=== PATIENT | male | born 1950 | race Caucasian/White ===

== ENCOUNTER → 2016-10-14 | Outpatient (CLI) | payer OTHER ==
[~2016-10-14] MED LIST: ALLERGY RELIEF180 MG PO; AMARYL4 MG PO; CYMBALTA30 MG PO; DOXYCYCLINE100 MG PO; FENOFIBRATE160 MG PO; GLUCOPHAGE1000 MG PO; GLUCOPHAGE500 MG PO; HUMULIN 70/30 703 M1 SC; LISINOPRIL-HYDR1 TA1 PO; METOPROLOL SUCC50 M2 PO; NEURONTIN300 MG PO; PAROXETINE HCL20 MG PO; PAXIL30 M2 PO; PEPCID40 MG PO; PLAVIX75 M1 PO; TAMSULOSIN HCL0.4 MG PO; VITAMIN D50000 UNIT PO; ZOCOR40 MG PO; [UNRECOGNIZED DRUG - OTHER] TP
== END | disposition home or self-care (01) ==
LOC: LAB 09:53 → CP 10:00
DX: G62.9 Polyneuropathy, unspecified (principal); R41.3 Other amnesia

== ENCOUNTER → 2017-03-18 | Outpatient (CLI) | payer MEDICARE | END | disposition home or self-care (01) | LOC: US 12:30 | DX: R22.2 Localized swelling, mass and lump, trunk (principal); R22.0 Localized swelling, mass and lump, head ==

== ENCOUNTER → 2017-04-01 | Day surgery (SDC) | payer MEDICARE, MEDICAID ==
[2017-04-01 12:57] LABS: ACT PARTIAL THROMBO TIME 25.1 SECONDS (20.8-31.5)
== END ==
LOC: SDC 02:37 → RAD 12:00 → SDC 13:00
PROVIDERS: Nurse Practitioner Family
DX: L02.31 Cutaneous abscess of buttock (principal); I48.91 Unspecified atrial fibrillation; I26.99 Other pulmonary embolism without acute cor pulmonale; E11.65 Type 2 diabetes mellitus with hyperglycemia; Z79.4 Long term (current) use of insulin; F32.9 Major depressive disorder, single episode, unspecified; F41.9 Anxiety disorder, unspecified; E55.9 Vitamin D deficiency, unspecified; G47.33 Obstructive sleep apnea (adult) (pediatric); Z79.84 Long term (current) use of oral hypoglycemic drugs; Z79.899 Other long term (current) drug therapy

== ENCOUNTER → 2017-05-09 | Outpatient (CLI) | payer MEDICARE, MEDICAID ==
[2017-05-09 11:52] LABS: CREATININE 1.15 mg/dL (0.70-1.30)
== END | disposition home or self-care (01) ==
LOC: MRI 11:00 → LAB 11:18 → MRI 11:18
PROVIDERS: Radiology Diagnostic Radiology
DX: I63.9 Cerebral infarction, unspecified (principal); Z78.9 Other specified health status

== ENCOUNTER → 2017-05-12 | Outpatient (CLI) | payer MEDICARE, MEDICAID | END | disposition home or self-care (01) | LOC: CP 08:25 | DX: J44.9 Chronic obstructive pulmonary disease, unspecified (principal); G47.33 Obstructive sleep apnea (adult) (pediatric) ==

== ENCOUNTER → 2017-06-03 | Day surgery (SDC) | payer MEDICARE, MEDICAID ==
[~2017-06-03] VITALS: Ht 165.1 cm; Wt 98.4 kg
[~2017-06-03] MED LIST changes: +HYDR12.5C PO; -LISINOPRIL-HYDR1 TA1 PO
--- NOTE | ~2017-06-03 | PROC NOTE ---
[place], [place] PROCEDURE NOTE NAME: [facility] #: [id number] UNIT #: [id number] ROOM: DOCTOR: LOKESH ALAN MD BIRTHDATE: [birth year] DOS: 06/03/2017 PREOPERATIVE DIAGNOSIS: Left gluteal cyst. POSTOPERATIVE DIAGNOSIS: Left gluteal cyst. PROCEDURE: Excision of left gluteal cyst. SURGEON: Lokesh Alan MD HOTEL SERVICE SUPERVISOR: MARCELL. ANESTHESIA: MAC with local. INDICATIONS: This is a 66-year-old gentleman who presents with a left gluteal cyst that he wants excised. The procedure and its complications were explained to the patient in detail preoperatively. Complications that were discussed included but were not limited to bleeding, infection, hematoma/seroma/abscess formation and prolonged pain. He agreed to proceed. DESCRIPTION OF PROCEDURE: After identifying the patient, the patient was brought to the operating suite and placed in the right lateral position. After IV sedation was administered, a timeout was called and the incision was marked in an elliptical fashion, 1% plain lidocaine was injected for local anesthesia after the parts were painted and draped in the usual sterile fashion. A skin incision was made and deepened in layers. The lesion was excised in its entirety and sent for histopathological diagnosis. Thereafter, hemostasis was confirmed with the help of electrocautery and the edges of the skin after irrigation were approximated with the help of 3-0 nylon in an interrupted mattress fashion. Dressing was placed. The patient tolerated the procedure well and was taken to the recovery room in stable fashion. There were no complications. Dr. Lokesh Alan, the attending surgeon, was present throughout the operating case. Lokesh Alan MD CM:PROCNOTE:PROCEDURE NOTE [id number] LOKESH ALAN MD
[2017-06-03 08:30] VITALS: BP 116/77
[2017-06-03 09:33] VITALS: BP 122/75
[2017-06-03 09:48] VITALS: BP 133/58
[2017-06-03 10:00] VITALS: BP 122/75
== END | disposition home or self-care (01) ==
LOC: SDC 06-02 10:15
DX: L08.89 Other specified local infections of the skin and subcutaneous tissue (principal); I25.2 Old myocardial infarction; I25.10 Atherosclerotic heart disease of native coronary artery without angina pectoris; E11.9 Type 2 diabetes mellitus without complications; F32.9 Major depressive disorder, single episode, unspecified; Z79.899 Other long term (current) drug therapy; E66.01 Morbid (severe) obesity due to excess calories; Z68.43 Body mass index [BMI] 50.0-59.9, adult; G47.30 Sleep apnea, unspecified; Z88.0 Allergy status to penicillin; Z88.8 Allergy status to other drugs, medicaments and biological substances

== ENCOUNTER → 2018-04-03 | Outpatient (CLI) | payer MEDICARE, MEDICAID ==
[~2018-04-03] MED LIST changes: +ARICEPT5 M1 PO; +COZAAR25 M1 PO; +LORATADINE10 M3 PO; +METFORMIN HYD1000 MG PO; +METOPROLOL TART50 M1 PO; +PERCOCET 5-3251 EACH PO; +PROVENTIL HFA6.7 GM INH; +SEROQUEL50 MG PO; +TOUJEO SOL300 UNIT/1 SQ; +TRAMADOL HCL50 MG PO
== END | disposition home or self-care (01) ==
LOC: US 13:00
DX: I70.203 Unspecified atherosclerosis of native arteries of extremities, bilateral legs (principal)

== ENCOUNTER → 2018-05-15 | Day surgery (SDC) | payer MEDICARE, MEDICAID ==
[~2018-05-15] VITALS: Ht 165.1 cm; Wt 98.9 kg
[2018-05-15 10:03] VITALS: BP 174/77
[2018-05-15 11:07] VITALS: BP 127/75
[2018-05-15 11:25] VITALS: BP 125/84
[2018-05-15 11:40] VITALS: BP 143/92
== END | disposition home or self-care (01) ==
LOC: SDC 05-12 09:30
DX: L98.419 Non-pressure chronic ulcer of buttock with unspecified severity (principal); L02.31 Cutaneous abscess of buttock; E11.9 Type 2 diabetes mellitus without complications; I25.2 Old myocardial infarction; F32.9 Major depressive disorder, single episode, unspecified; G62.9 Polyneuropathy, unspecified; Z98.890 Other specified postprocedural states; Z87.442 Personal history of urinary calculi; Z88.0 Allergy status to penicillin; Z88.8 Allergy status to other drugs, medicaments and biological substances; Z79.899 Other long term (current) drug therapy

== ENCOUNTER → 2018-06-01 | Outpatient (CLI) | payer MEDICARE | END | disposition home or self-care (01) | LOC: WOUNDCARE 08:09 | DX: S31.829A Unspecified open wound of left buttock, initial encounter (principal); L72.0 Epidermal cyst; E11.9 Type 2 diabetes mellitus without complications; J45.909 Unspecified asthma, uncomplicated; I10 Essential (primary) hypertension; I51.9 Heart disease, unspecified; F17.210 Nicotine dependence, cigarettes, uncomplicated; X58.XXXA Exposure to other specified factors, initial encounter; Y93.89 Activity, other specified; Y92.89 Other specified places as the place of occurrence of the external cause; Y99.8 Other external cause status; Z79.4 Long term (current) use of insulin ==

== ENCOUNTER → 2018-06-13 | Outpatient (CLI) | payer MEDICARE | END | disposition home or self-care (01) | LOC: WOUNDCARE 00:13 | DX: S31.829D Unspecified open wound of left buttock, subsequent encounter (principal); L72.0 Epidermal cyst; E11.9 Type 2 diabetes mellitus without complications; I11.9 Hypertensive heart disease without heart failure; J45.909 Unspecified asthma, uncomplicated; F17.210 Nicotine dependence, cigarettes, uncomplicated; X58.XXXD Exposure to other specified factors, subsequent encounter ==

== ENCOUNTER → 2018-09-27 | Outpatient (CLI) | payer MEDICARE | END | disposition home or self-care (01) | LOC: RAD 12:30 | DX: M19.012 Primary osteoarthritis, left shoulder (principal); M87.812 Other osteonecrosis, left shoulder ==

== ENCOUNTER → 2018-10-10 | Outpatient (CLI) | payer MEDICARE ==
--- NOTE | ~2018-10-10 | PF ---
[place], [place] PULMONARY FUNCTION TEST [facility] [id number] UNIT #: [id number] ROOM: DOCTOR: ALESSIA ODONNELL MD,LEONCIO BIRTHDATE: [birth year] DOS: 10/11/2018 ORDERED BY: Gilbert Crouch, nurse practitioner. HISTORY: The patient is a 67-year-old male, height of 66 inches, weight of 196 pounds. Study was done for assessment of symptoms of frequent wheezing, nonproductive cough and shortness of breath with exertion. Tobacco use reported half a pack of cigarettes for 35 years. SPIROMETRY: FVC of 3.47 liters, 91% predicted value. The FEV1 2.7 liters as 95% predicted value with a ratio of FEV1/FVC is normal. Flow volume loop was normal. LUNG VOLUME: Thoracic gas volume recorded as 88%, residual volume 121%, total lung capacity 97%. RV/TLC ratio 124%. The patient's airway resistance, passive conductance noted normal partial improvement post-bronchodilators. The patient's lung diffusion noted 97%. FINAL IMPRESSION: Possibility of very mild reversible obstructive lung disease cannot be excluded. Clinical correlation would be advised. LEONCIO AGGARWAL MD CM:PFREPORT:PULMONARY FUNCTION TEST [id number] LEONCIO ODONNELL MD
== END | disposition home or self-care (01) ==
LOC: CP 07:09
DX: R05 Cough (principal); R06.2 Wheezing; F17.210 Nicotine dependence, cigarettes, uncomplicated

== ENCOUNTER → 2019-05-09 | Outpatient (CLI) | payer MEDICARE ==
[2019-05-09 10:58] LABS: HEMATOCRIT 52.9 % (42.0-52.0); HEMOGLOBIN 17.1 g/dl (14.0-18.0); MEAN CELL VOLUME 87.1 fl (80.0-94.0); MEAN CORPUSCULAR HGB 28.2 pg (27.0-31.0); MEAN CORPUSCULAR HGB CONC 32.3 g/dl (33.0-37.0); MEAN PLATELET VOLUME 11.3 fl (9.6-12.3); RED BLOOD COUNT 6.07 10*6/uL (4.50-5.90); RED CELL DISTRI WIDTH 12.8 % (0-14.5); WHITE BLOOD COUNT 7.7 10*3/uL (4.8-10.8)
[2019-05-09 11:33] LABS: ALBUMIN 3.7 gm/dl (3.1-4.5); ALKALINE PHOSPHATASE 124 U/L (45-117); BUN 21 mg/dl (7-24); CHLORIDE 102 mmol/L (98-107); CHOLESTEROL 160 mg/dL (<200); HDL CHOLESTEROL 43 mg/dl (40-60); POTASSIUM 3.9 mmol/L (3.5-5.1); SGOT/AST 18 IU/L (3-35); SGPT/ALT 36 U/L (12-78); SODIUM 137 mmol/L (136-145); TRIGLYCERIDES 651 mg/dl (<150)
[2019-05-09 11:47] LABS: VITAMIN D, 25-HYDROXY 42.8 ng/mL (30-100)
[2019-05-10 06:08] LABS: HEPATITIS B SURFACE AG Negative (Negative); HEPATITIS C VIRUS ANTIBODY <0.1 s/co (0.0-0.9)
[2019-05-10 08:12] LABS: H PYLORI IGG AB 162289 0.33 (0.00-0.79)
== END | disposition home or self-care (01) ==
LOC: LAB 10:06
PROVIDERS: Family Medicine
DX: Z12.5 Encounter for screening for malignant neoplasm of prostate (principal); E11.9 Type 2 diabetes mellitus without complications; E78.00 Pure hypercholesterolemia, unspecified; R53.83 Other fatigue; E55.9 Vitamin D deficiency, unspecified; M25.50 Pain in unspecified joint; Z11.3 Encounter for screening for infections with a predominantly sexual mode of transmission; Z72.89 Other problems related to lifestyle

== ENCOUNTER → 2019-09-26 | Outpatient (CLI) | payer MEDICARE ==
[2019-09-26 10:40] LABS: MEAN CELL VOLUME 87.3 fl (80.0-94.0); MEAN CORPUSCULAR HGB 28.8 pg (27.0-31.0); MEAN PLATELET VOLUME 10.7 fl (9.6-12.3); RED BLOOD COUNT 5.04 10*6/uL (4.50-5.90); WHITE BLOOD COUNT 7.1 10*3/uL (4.8-10.8)
[2019-09-26 10:57] LABS: ALBUMIN 3.5 gm/dl (3.1-4.5); ALKALINE PHOSPHATASE 115 U/L (45-117); BUN 35 mg/dl (7-24); CHLORIDE 104 mmol/L (98-107); CHOLESTEROL 239 mg/dL (<200); CREATININE 1.03 mg/dL (0.70-1.30); HDL CHOLESTEROL 39 mg/dl (40-60); POTASSIUM 5.2 mmol/L (3.5-5.1); SGOT/AST 17 IU/L (3-35); SGPT/ALT 25 U/L (12-78); SODIUM 137 mmol/L (136-145); TOTAL PROTEIN 7.7 gm/dL (6.4-8.2); TRIGLYCERIDES 647 mg/dl (<150)
== END | disposition home or self-care (01) ==
LOC: LAB 10:19
PROVIDERS: Family Medicine
DX: I10 Essential (primary) hypertension (principal); E11.9 Type 2 diabetes mellitus without complications; E55.9 Vitamin D deficiency, unspecified; M19.90 Unspecified osteoarthritis, unspecified site

== ENCOUNTER → 2020-01-02 | Outpatient (CLI) | payer MEDICARE ==
[2020-01-02 10:31] LABS: HEMATOCRIT 45.8 % (42.0-52.0); MEAN CELL VOLUME 87.6 fl (80.0-94.0); MEAN CORPUSCULAR HGB 28.5 pg (27.0-31.0); MEAN CORPUSCULAR HGB CONC 32.5 g/dl (33.0-37.0); MEAN PLATELET VOLUME 11.3 fl (9.6-12.3); RED BLOOD COUNT 5.23 10*6/uL (4.50-5.90); RED CELL DISTRI WIDTH 12.9 % (0-14.5)
[2020-01-02 10:57] LABS: ALBUMIN 3.5 gm/dl (3.1-4.5); BUN 27 mg/dl (7-24); CHLORIDE 101 mmol/L (98-107); POTASSIUM 4.1 mmol/L (3.5-5.1); SODIUM 138 mmol/L (136-145)
[2020-01-02 11:01] LABS: ALKALINE PHOSPHATASE 111 U/L (45-117); CHOLESTEROL 276 mg/dL (<200); CREATININE 0.92 mg/dL (0.70-1.30); HDL CHOLESTEROL 42 mg/dl (40-60); SGOT/AST 18 IU/L (3-35); SGPT/ALT 27 U/L (12-78); TOTAL PROTEIN 8.1 gm/dL (6.4-8.2); TRIGLYCERIDES 450 mg/dl (<150)
== END | disposition home or self-care (01) ==
LOC: LAB 09:39
PROVIDERS: ATTEND Nurse Practitioner Family
DX: E11.9 Type 2 diabetes mellitus without complications (principal); E78.00 Pure hypercholesterolemia, unspecified; E55.9 Vitamin D deficiency, unspecified

== ENCOUNTER → 2020-04-08 | Outpatient (CLI) | payer MEDICARE ==
[~2020-04-08] MED LIST changes: +CRESTOR20 M1 PO; +DOK COLACE100 MG PO; +DONEPEZIL HYDRO10 M1 PO; +FLOMAX0.4 MG PO; +HUMULIN 70100 UNIT/2 SQ; +HYDROCODONE-AC1 EACH PO; +KENALOG 0.1% OI15 GM T; +LOPID600 M1 PO; +MIRALAX119 GM PO; +NICODERM CQ1 EAC1 TD; +Percocet 325 MG1 TAB PO; +ROXICODONE5 MG PO; +SUNMARK OMEPRAZ20 M1 PO; +VITAMIN D3250 MC2 PO
== END | disposition home or self-care (01) ==
LOC: CARD 12:00
PROVIDERS: ATTEND Internal Medicine Cardiovascular Disease
DX: R07.89 Other chest pain (principal); I10 Essential (primary) hypertension; R42 Dizziness and giddiness; R06.2 Wheezing

== ENCOUNTER 2020-05-01 09:07 | Inpatient (IN) | payer MEDICARE ==
[~2020-05-01] VITALS: Ht 165.1 cm; Wt 92.4 kg
[~2020-05-01 09:07] MED LIST changes: -CRESTOR20 M1 PO; -DOK COLACE100 MG PO; -DONEPEZIL HYDRO10 M1 PO; -FLOMAX0.4 MG PO; -HUMULIN 70100 UNIT/2 SQ; -HYDROCODONE-AC1 EACH PO; -KENALOG 0.1% OI15 GM T; -LOPID600 M1 PO; -MIRALAX119 GM PO; -NICODERM CQ1 EAC1 TD; -Percocet 325 MG1 TAB PO; -ROXICODONE5 MG PO; -SUNMARK OMEPRAZ20 M1 PO; -VITAMIN D3250 MC2 PO
[2020-05-01 09:18] VITALS: BP 134/80
[2020-05-01 09:38] LABS: BASO % 0.4 % (0.0-1.0); EOS # 0.2 10*3/uL (0.0-0.4); EOS % 2.5 % (1.0-4.0); HEMATOCRIT 41.8 % (42.0-52.0); LYMPH # 0.9 10*3/uL (1.3-4.4); LYMPH % 12.7 % (27.0-41.0); MEAN CELL VOLUME 89.1 fl (80.0-94.0); MEAN CORPUSCULAR HGB 27.9 pg (27.0-31.0); MEAN CORPUSCULAR HGB CONC 31.3 g/dl (33.0-37.0); MEAN PLATELET VOLUME 10.4 fl (9.6-12.3); MONO # 0.4 10*3/uL (0.1-1.0); MONO % 6.1 % (3.0-9.0); NEUT # 5.7 10*3/uL (2.3-7.9); NEUT % 77.6 % (47.0-73.0); PLATELET COUNT AUTOMATED 204 10*3/uL (130-400); RED BLOOD COUNT 4.69 10*6/uL (4.50-5.90); RED CELL DISTRI WIDTH 12.9 % (0-14.5); WHITE BLOOD COUNT 7.3 10*3/uL (4.8-10.8)
[2020-05-01 09:56] LABS: ALBUMIN 2.9 gm/dl (3.1-4.5); BUN 35 mg/dl (7-24); CHLORIDE 104 mmol/L (98-107); CREATININE 1.08 mg/dL (0.70-1.30); POTASSIUM 5.1 mmol/L (3.5-5.1); SGOT/AST 19 IU/L (3-35); SGPT/ALT 27 U/L (12-78); SODIUM 138 mmol/L (136-145); TOTAL PROTEIN 7.7 gm/dL (6.4-8.2)
[2020-05-01 09:58] LABS: ALKALINE PHOSPHATASE 106 U/L (45-117)
[2020-05-01 09:59] LABS: TROPONIN I < 0.015 ng/ml (<0.045)
[2020-05-01 10:10] VITALS: BP 127/64
[2020-05-01 11:45] VITALS: BP 124/64
[2020-05-01 12:00] VITALS: BP 135/77
[2020-05-01] MEDS ORDERED: DONEPEZIL HYDRO10 M1 PO (15:22)
[2020-05-01] MEDS ORDERED: CYMBALTA30 MG PO (15:23)
[2020-05-01] MEDS ORDERED: LOPID600 M1 PO (15:24)
[2020-05-01] MEDS ORDERED: AMARYL4 MG PO (15:25)
[2020-05-01] MEDS ORDERED: GLUCOPHAGE1000 MG PO (15:26)
[2020-05-01] MEDS ORDERED: FLOMAX0.4 MG PO (15:33)
[2020-05-01] MEDS ORDERED: CRESTOR20 M1 PO (15:33)
[2020-05-01] MEDS ORDERED: VITAMIN D3250 MC2 PO (15:35)
[2020-05-01 16:00] VITALS: BP 145/65
[2020-05-01] MEDS ORDERED: Percocet 325 MG1 TAB PO (16:55)
[2020-05-01 20:00] VITALS: BP 148/82
[2020-05-02] VITALS (11 sets, daily range): BP systolic 109–147; BP diastolic 62–97
[2020-05-03] VITALS: BP 152/90
[2020-05-03 06:44] VITALS: BP 134/90
[2020-05-03 08:00] VITALS: BP 142/88
[2020-05-03 08:46] VITALS: BP 160/84
[2020-05-03 12:00] VITALS: BP 135/77
[2020-05-03] MEDS ORDERED: SUNMARK OMEPRAZ20 M1 PO (16:19)
[2020-05-03 20:00] VITALS: BP 165/89
[2020-05-04] VITALS: BP 158/91
[2020-05-04 06:19] LABS: BASO % 0.4 % (0.0-1.0); EOS # 0.2 10*3/uL (0.0-0.4); EOS % 2.2 % (1.0-4.0); LYMPH # 1.9 10*3/uL (1.3-4.4); LYMPH % 22.1 % (27.0-41.0); MEAN CELL VOLUME 87.7 fl (80.0-94.0); MEAN CORPUSCULAR HGB 27.8 pg (27.0-31.0); MEAN CORPUSCULAR HGB CONC 31.7 g/dl (33.0-37.0); MEAN PLATELET VOLUME 10.1 fl (9.6-12.3); MONO # 0.7 10*3/uL (0.1-1.0); MONO % 8.5 % (3.0-9.0); NEUT # 5.6 10*3/uL (2.3-7.9); PLATELET COUNT AUTOMATED 260 10*3/uL (130-400); RED BLOOD COUNT 4.79 10*6/uL (4.50-5.90); RED CELL DISTRI WIDTH 12.6 % (0-14.5); WHITE BLOOD COUNT 8.5 10*3/uL (4.8-10.8)
[2020-05-04 06:27] LABS: CREATININE 0.98 mg/dL (0.70-1.30)
[2020-05-04 08:00] VITALS: BP 144/77
[2020-05-04 12:00] VITALS: BP 152/76
[2020-05-04 16:00] VITALS: BP 150/86
[2020-05-04 20:00] VITALS: BP 113/71
[2020-05-04 20:45] VITALS: BP 140/90
[2020-05-05 08:50] VITALS: BP 150/82
[2020-05-05 12:00] VITALS: BP 119/72
[2020-05-05 16:00] VITALS: BP 133/72
[2020-05-05 20:00] VITALS: BP 140/88
[2020-05-05 20:45] VITALS: BP 140/71
[2020-05-06] VITALS: BP 150/85
[2020-05-06 08:00] VITALS: BP 130/86
[2020-05-06 08:15] VITALS: BP 128/76
[2020-05-06 12:00] VITALS: BP 124/62
[2020-05-06 16:00] VITALS: BP 129/90
[2020-05-06 20:00] VITALS: BP 142/77
[2020-05-07] VITALS: BP 133/72
[2020-05-07 06:20] LABS: BASO % 0.4 % (0.0-1.0); EOS # 0.3 10*3/uL (0.0-0.4); EOS % 3.3 % (1.0-4.0); HEMATOCRIT 38.4 % (42.0-52.0); LYMPH # 1.8 10*3/uL (1.3-4.4); LYMPH % 23.4 % (27.0-41.0); MEAN CELL VOLUME 86.1 fl (80.0-94.0); MEAN CORPUSCULAR HGB CONC 32.6 g/dl (33.0-37.0); MONO # 0.7 10*3/uL (0.1-1.0); MONO % 9.7 % (3.0-9.0); NEUT # 4.7 10*3/uL (2.3-7.9); PLATELET COUNT AUTOMATED 293 10*3/uL (130-400); RED BLOOD COUNT 4.46 10*6/uL (4.50-5.90); RED CELL DISTRI WIDTH 12.6 % (0-14.5); WHITE BLOOD COUNT 7.6 10*3/uL (4.8-10.8)
[2020-05-07 06:57] LABS: CREATININE 1.03 mg/dL (0.70-1.30)
[2020-05-07 08:00] VITALS: BP 121/85
[2020-05-07] MEDS ORDERED: DOK COLACE100 MG PO (09:31)
[2020-05-07] MEDS ORDERED: Percocet 325 MG1 TAB PO (09:42)
[2020-05-19] MEDS ORDERED: HUMULIN 70100 UNIT/2 SQ (08:43)
[2020-05-19] MEDS ORDERED: MIRALAX119 GM PO (08:44)
[2020-05-19] MEDS ORDERED: NICODERM CQ1 EAC1 TD (08:45)
[2020-05-19] MEDS ORDERED: KENALOG 0.1% OI15 GM T (08:46)
[2020-06-05] MEDS ORDERED: ROXICODONE5 MG PO (12:50)
== END 2020-05-07 12:32 | DRG 493 ==
LOC: ED 09:07 → EDHOLD 10:51 → 5E 10:51
PROVIDERS: Emergency Medicine; ADMIT Internal Medicine; ATTEND Internal Medicine
PROC: 0QSJ04Z Reposition Right Fibula with Internal Fixation Device, Open Approach (ICD-10-PCS; principal; 2020-05-02)
PROC: 5A1935Z Respiratory Ventilation, Less than 24 Consecutive Hours (ICD-10-PCS; 2020-05-02)
PROC: 5A1935Z Respiratory Ventilation, Less than 24 Consecutive Hours (ICD-10-PCS; 2020-05-04)
DX: S82.841A Displaced bimalleolar fracture of right lower leg, initial encounter for closed fracture (principal); J44.1 Chronic obstructive pulmonary disease with (acute) exacerbation; F33.1 Major depressive disorder, recurrent, moderate; E44.1 Mild protein-calorie malnutrition; S93.421A Sprain of deltoid ligament of right ankle, initial encounter; R91.1 Solitary pulmonary nodule; G47.33 Obstructive sleep apnea (adult) (pediatric); E78.2 Mixed hyperlipidemia; I25.10 Atherosclerotic heart disease of native coronary artery without angina pectoris; I10 Essential (primary) hypertension; E66.9 Obesity, unspecified; E55.9 Vitamin D deficiency, unspecified; G30.1 Alzheimer's disease with late onset; F02.80 Dementia in other diseases classified elsewhere, unspecified severity, without behavioral disturbance, psychotic disturbance, mood disturbance, and anxiety; L40.9 Psoriasis, unspecified; R55 Syncope and collapse; R79.89 Other specified abnormal findings of blood chemistry; N40.1 Benign prostatic hyperplasia with lower urinary tract symptoms; K21.9 Gastro-esophageal reflux disease without esophagitis; R33.8 Other retention of urine; M48.00 Spinal stenosis, site unspecified; M19.90 Unspecified osteoarthritis, unspecified site; F17.210 Nicotine dependence, cigarettes, uncomplicated; E11.42 Type 2 diabetes mellitus with diabetic polyneuropathy; Z88.0 Allergy status to penicillin; Z88.8 Allergy status to other drugs, medicaments and biological substances; Z95.5 Presence of coronary angioplasty implant and graft; Z82.49 Family history of ischemic heart disease and other diseases of the circulatory system; Z80.8 Family history of malignant neoplasm of other organs or systems; Z86.73 Personal history of transient ischemic attack (TIA), and cerebral infarction without residual deficits; Z87.442 Personal history of urinary calculi; I25.2 Old myocardial infarction; Z79.899 Other long term (current) drug therapy; W18.39XA Other fall on same level, initial encounter; Y93.89 Activity, other specified; Y92.89 Other specified places as the place of occurrence of the external cause; Y99.8 Other external cause status; Z20.822 Contact with and (suspected) exposure to COVID-19; Z68.34 Body mass index [BMI] 34.0-34.9, adult

== ENCOUNTER → 2020-05-16 | Outpatient (CLI) | payer MEDICARE ==
[~2020-05-16] MED LIST changes: +CRESTOR20 M1 PO; +DOK COLACE100 MG PO; +DONEPEZIL HYDRO10 M1 PO; +FLOMAX0.4 MG PO; +HUMULIN 70100 UNIT/2 SQ; +HYDROCODONE-AC1 EACH PO; +KENALOG 0.1% OI15 GM T; +LOPID600 M1 PO; +MIRALAX119 GM PO; +NICODERM CQ1 EAC1 TD; +Percocet 325 MG1 TAB PO; +ROXICODONE5 MG PO; +SUNMARK OMEPRAZ20 M1 PO; +VITAMIN D3250 MC2 PO
== END | disposition home or self-care (01) ==
LOC: ORTHO 01:06
PROVIDERS: ATTEND Orthopaedic Surgery
DX: S82.841D Displaced bimalleolar fracture of right lower leg, subsequent encounter for closed fracture with routine healing (principal); X58.XXXD Exposure to other specified factors, subsequent encounter

== ENCOUNTER → 2020-05-20 | Day surgery (SDC) | payer MEDICARE ==
[~2020-05-20] VITALS: Ht 165.1 cm; Wt 95.3 kg
[2020-05-20 07:28] VITALS: BP 152/79
[2020-05-20 10:10] VITALS: BP 139/79
[2020-05-20 10:23] VITALS: BP 126/56
[2020-05-20 10:38] VITALS: BP 129/72
[2020-05-20 10:52] VITALS: BP 120/75
[2020-05-20 11:10] VITALS: BP 138/85
== END ==
LOC: SDC 05-19 14:00
PROVIDERS: ATTEND Orthopaedic Surgery
DX: S82.841A Displaced bimalleolar fracture of right lower leg, initial encounter for closed fracture (principal); E11.40 Type 2 diabetes mellitus with diabetic neuropathy, unspecified; I25.2 Old myocardial infarction; F32.9 Major depressive disorder, single episode, unspecified; I25.10 Atherosclerotic heart disease of native coronary artery without angina pectoris; I10 Essential (primary) hypertension; Z86.73 Personal history of transient ischemic attack (TIA), and cerebral infarction without residual deficits; Z95.5 Presence of coronary angioplasty implant and graft; Z98.890 Other specified postprocedural states; Z88.0 Allergy status to penicillin; Z79.899 Other long term (current) drug therapy; X58.XXXA Exposure to other specified factors, initial encounter; Y93.89 Activity, other specified; Y92.89 Other specified places as the place of occurrence of the external cause; Y99.8 Other external cause status; Z20.828 Contact with and (suspected) exposure to other viral communicable diseases

== ENCOUNTER → 2020-06-03 | Outpatient (CLI) | payer MEDICARE | END | disposition home or self-care (01) | LOC: ORTHO 12:38 | PROVIDERS: ATTEND Orthopaedic Surgery | DX: M21.071 Valgus deformity, not elsewhere classified, right ankle (principal); S82.841D Displaced bimalleolar fracture of right lower leg, subsequent encounter for closed fracture with routine healing; X58.XXXD Exposure to other specified factors, subsequent encounter ==

== ENCOUNTER → 2020-06-04 | Outpatient (CLI) | payer MEDICARE ==
[2020-06-04 12:55] LABS: BUN 25 mg/dl (7-24); CHLORIDE 102 mmol/L (98-107); CREATININE 1.38 mg/dL (0.70-1.30); POTASSIUM 4.2 mmol/L (3.5-5.1); SODIUM 139 mmol/L (136-145)
== END | disposition home or self-care (01) ==
LOC: LAB 11:49
PROVIDERS: ATTEND Orthopaedic Surgery
DX: S02.841 Fracture of lateral orbital wall, right side (principal); I45.10 Unspecified right bundle-branch block; I25.2 Old myocardial infarction; X58.XXXD Exposure to other specified factors, subsequent encounter

== ENCOUNTER → 2020-06-05 | Day surgery (SDC) | payer MEDICARE ==
[~2020-06-05] VITALS: Ht 165.1 cm; Wt 95.3 kg
[2020-06-05 08:10] VITALS: BP 145/84
[2020-06-05 11:38] VITALS: BP 178/86
[2020-06-05 11:53] VITALS: BP 179/93
[2020-06-05 12:08] VITALS: BP 168/90
[2020-06-05 12:23] VITALS: BP 170/90
[2020-06-05 12:30] VITALS: BP 134/78
== END ==
LOC: SDC 06-04 09:30
PROVIDERS: ATTEND Orthopaedic Surgery
DX: S82.841A Displaced bimalleolar fracture of right lower leg, initial encounter for closed fracture (principal); F03.90 Unspecified dementia, unspecified severity, without behavioral disturbance, psychotic disturbance, mood disturbance, and anxiety; E11.49 Type 2 diabetes mellitus with other diabetic neurological complication; F32.9 Major depressive disorder, single episode, unspecified; I10 Essential (primary) hypertension; I25.10 Atherosclerotic heart disease of native coronary artery without angina pectoris; I25.2 Old myocardial infarction; E78.5 Hyperlipidemia, unspecified; F02.80 Dementia in other diseases classified elsewhere, unspecified severity, without behavioral disturbance, psychotic disturbance, mood disturbance, and anxiety; Z88.0 Allergy status to penicillin; X58.XXXA Exposure to other specified factors, initial encounter; Y93.89 Activity, other specified; Y92.89 Other specified places as the place of occurrence of the external cause; Y99.8 Other external cause status

== ENCOUNTER 2020-06-11 19:59 | Inpatient (IN) | payer MEDICARE ==
[~2020-06-11] VITALS: Ht 170.2 cm; Wt 94.3 kg
[~2020-06-11 19:59] MED LIST changes: -HYDROCODONE-AC1 EACH PO
[2020-06-11 20:14] VITALS: BP 154/82
[2020-06-11 21:08] LABS: BASO % 0.3 % (0.0-1.0); EOS # 0.2 10*3/uL (0.0-0.4); EOS % 3.4 % (1.0-4.0); HEMATOCRIT 37.5 % (42.0-52.0); LYMPH # 1.6 10*3/uL (1.3-4.4); LYMPH % 26.7 % (27.0-41.0); MEAN CELL VOLUME 86.6 fl (80.0-94.0); MEAN CORPUSCULAR HGB 27.7 pg (27.0-31.0); MEAN PLATELET VOLUME 10.5 fl (9.6-12.3); MONO # 0.5 10*3/uL (0.1-1.0); MONO % 8.7 % (3.0-9.0); NEUT # 3.6 10*3/uL (2.3-7.9); NEUT % 59.6 % (47.0-73.0); PLATELET COUNT AUTOMATED 270 10*3/uL (130-400); RED BLOOD COUNT 4.33 10*6/uL (4.50-5.90); RED CELL DISTRI WIDTH 12.8 % (0-14.5); WHITE BLOOD COUNT 6.1 10*3/uL (4.8-10.8)
[2020-06-11 21:18] LABS: INTERNATIONAL NORM RATIO 0.9 (2.0-3.5)
[2020-06-11 21:26] LABS: ALBUMIN 2.9 gm/dl (3.1-4.5); ALKALINE PHOSPHATASE 164 U/L (45-117); BUN 27 mg/dl (7-24); CHLORIDE 103 mmol/L (98-107); CREATININE 1.12 mg/dL (0.70-1.30); SGOT/AST 13 IU/L (3-35); SGPT/ALT 16 U/L (12-78); SODIUM 140 mmol/L (136-145); TOTAL PROTEIN 7.5 gm/dL (6.4-8.2)
[2020-06-11 22:40] VITALS: BP 140/82
[2020-06-12 08:00] VITALS: BP 152/52
[2020-06-12 12:00] VITALS: BP 156/89
[2020-06-12 14:00] VITALS: BP 150/64
[2020-06-12 20:00] VITALS: BP 112/77
[2020-06-13] VITALS (7 sets, daily range): BP systolic 110–167; BP diastolic 67–119
[2020-06-14] VITALS: BP 147/78
[2020-06-14 08:00] VITALS: BP 165/83
[2020-06-14 12:00] VITALS: BP 166/56
[2020-06-14 16:00] VITALS: BP 166/78
[2020-06-14 20:00] VITALS: BP 144/88
[2020-06-15] VITALS: BP 149/93
[2020-06-15 06:35] LABS: BASO % 0.4 % (0.0-1.0); EOS # 0.2 10*3/uL (0.0-0.4); EOS % 1.8 % (1.0-4.0); HEMATOCRIT 38.9 % (42.0-52.0); LYMPH # 2.2 10*3/uL (1.3-4.4); LYMPH % 23.9 % (27.0-41.0); MEAN CELL VOLUME 86.4 fl (80.0-94.0); MEAN CORPUSCULAR HGB 27.3 pg (27.0-31.0); MEAN CORPUSCULAR HGB CONC 31.6 g/dl (33.0-37.0); MEAN PLATELET VOLUME 10.6 fl (9.6-12.3); MONO # 0.9 10*3/uL (0.1-1.0); NEUT # 5.8 10*3/uL (2.3-7.9); PLATELET COUNT AUTOMATED 247 10*3/uL (130-400); RED CELL DISTRI WIDTH 13.1 % (0-14.5); WHITE BLOOD COUNT 9.2 10*3/uL (4.8-10.8)
[2020-06-15 06:39] LABS: BUN 28 mg/dl (7-24); CHLORIDE 101 mmol/L (98-107); CREATININE 0.93 mg/dL (0.70-1.30); SODIUM 135 mmol/L (136-145)
[2020-06-15 08:00] VITALS: BP 140/82
[2020-06-15 12:00] VITALS: BP 145/93
[2020-06-15 16:00] VITALS: BP 146/90
[2020-06-15 20:00] VITALS: BP 138/90; BP 171/94
[2020-06-16] VITALS: BP 157/79
[2020-06-16 08:00] VITALS: BP 146/86
[2020-06-16 12:00] VITALS: BP 156/80
[2020-06-16 16:00] VITALS: BP 128/82
[2020-06-16 20:31] VITALS: BP 158/80
[2020-06-17] VITALS: BP 154/85
[2020-06-17 08:00] VITALS: BP 132/86
[2020-06-17 12:00] VITALS: BP 130/88
[2020-06-17 16:00] VITALS: BP 153/82
[2020-06-17 20:00] VITALS: BP 132/78
[2020-06-18] VITALS (11 sets, daily range): BP systolic 128–170; BP diastolic 65–110
[2020-06-18 23:07] LABS: CREATININE 1.72 mg/dL (0.70-1.30); POTASSIUM 4.8 mmol/L (3.5-5.1)
[2020-06-19 04:46] LABS: BILIRUBIN Negative (Negative); BLOOD 1+ (Negative); CLARITY Clear (Clear); COLOR Yellow (Yellow); GLUCOSE 3+ (Negative); KETONE Negative (Negative); LEUKO ESTERASE Negative (Negative); NITRITE Negative (Negative); SPECIFIC GRAVITY 1.025 (1.001-1.030); UROBILINOGEN 0.2 E.U./dl (0.0-1.0)
[2020-06-19 04:59] LABS: BACTERIA TRACE
[2020-06-19 05:02] LABS: MUCOUS TRACE
[2020-06-19 08:00] VITALS: BP 157/80
[2020-06-19 11:07] LABS: ACID FAST SPEC PROCESSING Tissue Grinding (.)
[2020-06-19 12:00] VITALS: BP 153/87
[2020-06-19 15:54] VITALS: BP 126/76
[2020-06-19 20:00] VITALS: BP 129/84
[2020-06-20] VITALS: BP 136/86
[2020-06-20 08:00] VITALS: BP 137/74
[2020-06-20 12:00] VITALS: BP 148/81
[2020-06-20] MEDS ORDERED: HYDROCODONE-AC1 EACH PO (13:45)
[2020-06-20 16:00] VITALS: BP 145/73
== END 2020-06-20 17:47 | DRG 493 ==
LOC: ED 19:59 → EDHOLD 21:19 → 5E 21:19
PROVIDERS: Emergency Medicine; Internal Medicine; Podiatrist; ADMIT Internal Medicine; ATTEND Internal Medicine
PROC: 0QSG05Z Reposition Right Tibia with External Fixation Device, Open Approach (ICD-10-PCS; 2020-06-13)
PROC: 0QSGXZZ Reposition Right Tibia, External Approach (ICD-10-PCS; 2020-06-13)
PROC: 0QPJ04Z Removal of Internal Fixation Device from Right Fibula, Open Approach (ICD-10-PCS; 2020-06-13)
PROC: 0QPG04Z Removal of Internal Fixation Device from Right Tibia, Open Approach (ICD-10-PCS; 2020-06-13)
PROC: 0QPG05Z Removal of External Fixation Device from Right Tibia, Open Approach (ICD-10-PCS; principal; 2020-06-18)
PROC: 0QSG04Z Reposition Right Tibia with Internal Fixation Device, Open Approach (ICD-10-PCS; 2020-06-18)
PROC: 0QSJ04Z Reposition Right Fibula with Internal Fixation Device, Open Approach (ICD-10-PCS; 2020-06-18)
PROC: 0SSF04Z Reposition Right Ankle Joint with Internal Fixation Device, Open Approach (ICD-10-PCS; 2020-06-18)
PROC: 0SGF0KZ Fusion of Right Ankle Joint with Nonautologous Tissue Substitute, Open Approach (ICD-10-PCS; 2020-06-18)
PROC: 0MQQ0ZZ Repair Right Ankle Bursa and Ligament, Open Approach (ICD-10-PCS; 2020-06-18)
DX: S82.851A Displaced trimalleolar fracture of right lower leg, initial encounter for closed fracture (principal); E44.1 Mild protein-calorie malnutrition; E11.42 Type 2 diabetes mellitus with diabetic polyneuropathy; F32.9 Major depressive disorder, single episode, unspecified; K21.9 Gastro-esophageal reflux disease without esophagitis; E78.5 Hyperlipidemia, unspecified; I25.10 Atherosclerotic heart disease of native coronary artery without angina pectoris; G47.33 Obstructive sleep apnea (adult) (pediatric); E78.2 Mixed hyperlipidemia; N40.0 Benign prostatic hyperplasia without lower urinary tract symptoms; G30.9 Alzheimer's disease, unspecified; F02.80 Dementia in other diseases classified elsewhere, unspecified severity, without behavioral disturbance, psychotic disturbance, mood disturbance, and anxiety; E66.9 Obesity, unspecified; I12.9 Hypertensive chronic kidney disease with stage 1 through stage 4 chronic kidney disease, or unspecified chronic kidney disease; N18.9 Chronic kidney disease, unspecified; E11.22 Type 2 diabetes mellitus with diabetic chronic kidney disease; J43.2 Centrilobular emphysema; S93.421A Sprain of deltoid ligament of right ankle, initial encounter; E11.65 Type 2 diabetes mellitus with hyperglycemia; X58.XXXA Exposure to other specified factors, initial encounter; Z20.822 Contact with and (suspected) exposure to COVID-19; Y93.89 Activity, other specified; Y92.89 Other specified places as the place of occurrence of the external cause; Y99.8 Other external cause status; Z68.32 Body mass index [BMI] 32.0-32.9, adult; Z88.0 Allergy status to penicillin; Z88.8 Allergy status to other drugs, medicaments and biological substances; Z95.5 Presence of coronary angioplasty implant and graft; Z87.442 Personal history of urinary calculi; Z82.49 Family history of ischemic heart disease and other diseases of the circulatory system; Z80.8 Family history of malignant neoplasm of other organs or systems; Z91.19 Patient's noncompliance with other medical treatment and regimen; Z72.0 Tobacco use; G89.18 Other acute postprocedural pain

== ENCOUNTER → 2020-06-11 | Outpatient (CLI) | payer MEDICARE | END | disposition home or self-care (01) | LOC: ORTHO 13:07 | PROVIDERS: ATTEND Orthopaedic Surgery | DX: S82.841S Displaced bimalleolar fracture of right lower leg, sequela (principal); X58.XXXS Exposure to other specified factors, sequela ==

== ENCOUNTER → 2020-08-06 | Outpatient (CLI) | payer MEDICARE ==
[~2020-08-06] MED LIST changes: +HYDROCODONE-AC1 EACH PO
== END | disposition home or self-care (01) ==
LOC: CT 08-05 11:00
PROVIDERS: ATTEND Internal Medicine Critical Care Medicine
DX: R91.1 Solitary pulmonary nodule (principal); M19.012 Primary osteoarthritis, left shoulder; M19.011 Primary osteoarthritis, right shoulder; M25.711 Osteophyte, right shoulder; M25.712 Osteophyte, left shoulder

== ENCOUNTER → 2020-09-02 | Outpatient (CLI) | payer MEDICARE ==
[2020-09-03 06:07] LABS: HEP B CORE AB, IGM Negative (Negative); HEPATITIS B SURFACE AG Negative (Negative); HEPATITIS C VIRUS ANTIBODY <0.1 s/co (0.0-0.9); RHEUMATOID ARTHRITIS FACTOR 11.2 IU/mL (0.0-13.9)
== END | disposition home or self-care (01) ==
LOC: LAB 14:21
PROVIDERS: ATTEND Family Medicine
DX: E78.00 Pure hypercholesterolemia, unspecified (principal); M19.90 Unspecified osteoarthritis, unspecified site; R53.83 Other fatigue; M25.50 Pain in unspecified joint; M79.10 Myalgia, unspecified site; L40.9 Psoriasis, unspecified

== ENCOUNTER → 2020-09-26 | Outpatient (CLI) | payer MEDICARE | END | disposition home or self-care (01) | LOC: CT 09-25 15:00 | PROVIDERS: ATTEND Podiatrist Foot & Ankle Surgery | DX: M85.871 Other specified disorders of bone density and structure, right ankle and foot (principal); M21.071 Valgus deformity, not elsewhere classified, right ankle; M77.31 Calcaneal spur, right foot; R60.0 Localized edema; M25.471 Effusion, right ankle; M65.871 Other synovitis and tenosynovitis, right ankle and foot; M24.571 Contracture, right ankle; Z87.81 Personal history of (healed) traumatic fracture; Z98.890 Other specified postprocedural states ==

== ENCOUNTER → 2020-10-07 | Outpatient (CLI) | payer MEDICARE | END | disposition home or self-care (01) | LOC: CARD 00:42 | PROVIDERS: ATTEND Internal Medicine Cardiovascular Disease | DX: I45.2 Bifascicular block (principal); R53.81 Other malaise ==

== ENCOUNTER 2021-03-15 18:07 | Emergency (ER) | payer MEDICARE ==
[~2021-03-15] VITALS: Ht 167.6 cm; Wt 97.5 kg
[2021-03-15 18:49] LABS: BASO % 0.3 % (0.0-1.0); EOS # 0.2 10*3/uL (0.0-0.4); EOS % 2.7 % (1.0-4.0); HEMATOCRIT 32.3 % (42.0-52.0); LYMPH # 1.5 10*3/uL (1.3-4.4); LYMPH % 16.6 % (27.0-41.0); MEAN CELL VOLUME 81.6 fl (80.0-94.0); MEAN CORPUSCULAR HGB 24.2 pg (27.0-31.0); MEAN CORPUSCULAR HGB CONC 29.7 g/dl (33.0-37.0); MEAN PLATELET VOLUME 10.2 fl (9.6-12.3); MONO # 0.7 10*3/uL (0.1-1.0); MONO % 8.2 % (3.0-9.0); NEUT # 6.3 10*3/uL (2.3-7.9); NEUT % 71.7 % (47.0-73.0); PLATELET COUNT AUTOMATED 273 10*3/uL (130-400); RED BLOOD COUNT 3.96 10*6/uL (4.50-5.90); RED CELL DISTRI WIDTH 14.8 % (0-14.5); WHITE BLOOD COUNT 8.8 10*3/uL (4.8-10.8)
[2021-03-15 19:00] LABS: ACT PARTIAL THROMBO TIME 29.4 SECONDS (20.0-32.1)
[2021-03-15 19:04] LABS: ALBUMIN 2.6 gm/dl (3.1-4.5); CREATININE 1.52 mg/dL (0.70-1.30); POTASSIUM 3.9 mmol/L (3.5-5.1)
== END 2021-03-15 23:46 | disposition short-term general hospital (02) ==
LOC: ED 18:07
PROVIDERS: Physician Assistant
DX: I44.2 Atrioventricular block, complete (principal); Z20.822 Contact with and (suspected) exposure to COVID-19

== ENCOUNTER 2021-03-30 08:24 | Inpatient (IN) | payer MEDICARE ==
[2021-03-30] VITALS (28 sets, daily range): BP systolic 77–166; BP diastolic 34–65
[~2021-03-30] VITALS: Ht 165.1 cm; Wt 110.0 kg
[2021-03-30 09:02] LABS: HEMATOCRIT 30.4 % (42.0-52.0); MEAN CELL VOLUME 77.2 fl (80.0-94.0); MEAN CORPUSCULAR HGB 23.9 pg (27.0-31.0); MEAN CORPUSCULAR HGB CONC 30.9 g/dl (33.0-37.0); PLATELET COUNT AUTOMATED 172 10*3/uL (130-400); RED BLOOD COUNT 3.94 10*6/uL (4.50-5.90); RED CELL DISTRI WIDTH 15.1 % (0-14.5); WHITE BLOOD COUNT 8.3 10*3/uL (4.8-10.8)
[2021-03-30 09:17] LABS: ACT PARTIAL THROMBO TIME 34.4 SECONDS (20.0-32.1); INTERNATIONAL NORM RATIO 1.1 (2.0-3.5)
[2021-03-30 09:21] LABS: ALBUMIN 2.2 gm/dl (3.1-4.5); CREATININE 1.64 mg/dL (0.70-1.30); POTASSIUM 3.4 mmol/L (3.5-5.1)
[2021-03-30 09:42] LABS: TOTAL CELLS COUNTED 100 #CELLS
[2021-03-30 09:43] LABS: MICROCYTOSIS SLIGHT; OVALOCYTES FEW; PLATELET SUFFICIENCY NORMAL (NORMAL)
[2021-03-30 11:00] LABS: ABG BASE EXCESS -3.1 mmol/L (-2.0-2.0); ARTERIAL BLOOD GAS PH 7.511 (7.35-7.45); ARTERIAL BLOOD GAS PO2 91.3 (80-90)
[2021-03-30] MEDS ORDERED: IRON325 M1 PO (12:05)
[2021-03-30] MEDS ORDERED: FLOMAX0.4 MG PO (12:06)
[2021-03-30] MEDS ORDERED: VITAMIN D3125 MCG PO (12:20)
[2021-03-30] MEDS ORDERED: VIBRAMYCIN100 MG PO (12:21)
[2021-03-30] MEDS ORDERED: GOOD NEIGHBOR P10 M1 PO (12:23)
[2021-03-30] MEDS ORDERED: PROVENTIL HFA6.7 GM INH (12:39)
[2021-03-30] MEDS ORDERED: MELATONIN10 M2 PO (12:39)
[2021-03-30] MEDS ORDERED: NITROSTAT0.4 MG SL (12:40)
[2021-03-30] MEDS ORDERED: ULTRAM50 MG PO (12:48)
[2021-03-30 14:59] LABS: ABG BASE EXCESS -7.8 mmol/L (-2.0-2.0); ARTERIAL BLOOD GAS PH 7.248 (7.35-7.45); ARTERIAL BLOOD GAS PO2 441.9 (80-90)
[2021-03-30] MEDS ORDERED: COZAAR50 M1 PO (15:05)
[2021-03-30] MEDS ORDERED: CRESTOR20 M1 PO (15:05)
[2021-03-30] MEDS ORDERED: DECADRON6 M1 PO (15:06)
[2021-03-30] MEDS ORDERED: LASIX20 MG PO (15:08)
[2021-03-30] MEDS ORDERED: PROTONIX40 MG PO (15:09)
[2021-03-30 20:20] LABS: ABG BASE EXCESS -9.5 mmol/L (-2.0-2.0); ARTERIAL BLOOD GAS PH 7.32 (7.35-7.45)
[2021-03-31] VITALS (59 sets, daily range): BP systolic 81–121; BP diastolic 24–65
[2021-03-31 00:28] LABS: BILIRUBIN Negative (Negative); BLOOD 3+ (Negative); CLARITY Turbid (Clear); COLOR Yellow (Yellow); GLUCOSE Trace (Negative); KETONE Trace (Negative); LEUKO ESTERASE Negative (Negative); NITRITE Negative (Negative); SPECIFIC GRAVITY 1.025 (1.001-1.030); UROBILINOGEN 0.2 E.U./dl (0.0-1.0)
[2021-03-31 00:49] LABS: COARSE GRANULAR CAST 16-20
[2021-03-31 00:50] LABS: BACTERIA 1+; RBC 16-20 rbc/hpf (0-2)
[2021-03-31 00:51] LABS: WBC 0-2 wbc/hpf (0-5)
[2021-03-31 07:00] LABS: HEMATOCRIT 29.7 % (42.0-52.0); MEAN CELL VOLUME 77.1 fl (80.0-94.0); MEAN CORPUSCULAR HGB 24.2 pg (27.0-31.0); MEAN CORPUSCULAR HGB CONC 31.3 g/dl (33.0-37.0); MEAN PLATELET VOLUME 12.4 fl (9.6-12.3); RED BLOOD COUNT 3.85 10*6/uL (4.50-5.90); RED CELL DISTRI WIDTH 15.6 % (0-14.5); WHITE BLOOD COUNT 7.1 10*3/uL (4.8-10.8)
[2021-03-31 07:02] LABS: PLATELET COUNT AUTOMATED 99 10*3/uL (130-400)
[2021-03-31 07:09] LABS: POTASSIUM 4.3 mmol/L (3.5-5.1)
[2021-03-31 07:25] LABS: ALBUMIN 1.7 gm/dl (3.1-4.5); CREATININE 4.55 mg/dL (0.70-1.30); THYROID STIM HORMONE (HS) 1.27 uIU/ml (0.358-4.75); TOTAL PROTEIN 6.1 gm/dL (6.4-8.2)
[2021-03-31 07:43] LABS: TOTAL CELLS COUNTED 100 #CELLS
[2021-03-31 07:44] LABS: BURR CELLS FEW; MICROCYTOSIS SLIGHT; PLATELET SUFFICIENCY LOW (NORMAL); POLYCHROMASIA SLIGHT
[2021-03-31 07:45] LABS: ROULEAUX SLIGHT
[2021-03-31 07:48] LABS: INTERNATIONAL NORM RATIO 1.1 (2.0-3.5)
[2021-03-31 07:50] LABS: ACT PARTIAL THROMBO TIME 39.3 SECONDS (20.0-32.1)
[2021-03-31 08:28] LABS: ARTERIAL BLOOD GAS PH 7.38 (7.35-7.45)
[2021-03-31 08:37] LABS: ABG BASE EXCESS -8.9 mmol/L (-2.0-2.0)
[2021-03-31 16:40] LABS: ARTERIAL BLOOD GAS PO2 167.9 (80-90)
[2021-03-31 16:43] LABS: ABG BASE EXCESS -13.5 mmol/L (-2.0-2.0); ARTERIAL BLOOD GAS PH 7.162 (7.35-7.45)
== END 2021-04-01 02:53 | DRG 871 ==
LOC: ED 08:24 → ICCU 10:17 → EDHOLD 10:17 → ICCU 03-31 10:08
PROVIDERS: Emergency Medicine; Hospitalist; Internal Medicine; ADMIT Internal Medicine; ATTEND Internal Medicine
PROC: XW033E5 Introduction of Remdesivir Anti-infective into Peripheral Vein, Percutaneous Approach, New Technology Group 5 (ICD-10-PCS; principal; 2021-03-30)
PROC: 0BH17EZ Insertion of Endotracheal Airway into Trachea, Via Natural or Artificial Opening (ICD-10-PCS; 2021-03-30)
PROC: 5A1945Z Respiratory Ventilation, 24-96 Consecutive Hours (ICD-10-PCS; 2021-03-30)
PROC: 06H033Z Insertion of Infusion Device into Inferior Vena Cava, Percutaneous Approach (ICD-10-PCS; 2021-03-30)
PROC: B549ZZA Ultrasonography of Inferior Vena Cava, Guidance (ICD-10-PCS; 2021-03-30)
DX: A41.9 Sepsis, unspecified organism (principal); U07.1 COVID-19; R65.21 Severe sepsis with septic shock; I21.4 Non-ST elevation (NSTEMI) myocardial infarction; G93.41 Metabolic encephalopathy; N17.0 Acute kidney failure with tubular necrosis; J96.01 Acute respiratory failure with hypoxia; E44.0 Moderate protein-calorie malnutrition; E87.1 Hypo-osmolality and hyponatremia; Z68.41 Body mass index [BMI] 40.0-44.9, adult; Z66 Do not resuscitate; Z51.5 Encounter for palliative care; D50.9 Iron deficiency anemia, unspecified; K21.9 Gastro-esophageal reflux disease without esophagitis; E10.65 Type 1 diabetes mellitus with hyperglycemia; I10 Essential (primary) hypertension; E78.5 Hyperlipidemia, unspecified; F32.A Depression, unspecified; D69.6 Thrombocytopenia, unspecified; E83.42 Hypomagnesemia; Z88.0 Allergy status to penicillin; Z88.2 Allergy status to sulfonamides; Z88.8 Allergy status to other drugs, medicaments and biological substances; Z82.49 Family history of ischemic heart disease and other diseases of the circulatory system; Z95.5 Presence of coronary angioplasty implant and graft; Z79.51 Long term (current) use of inhaled steroids; Z79.899 Other long term (current) drug therapy; Z79.4 Long term (current) use of insulin